=== PATIENT | female | born 1970 | race Caucasian/White ===

== ENCOUNTER 2017-01-28 23:40 | Emergency (ER) | payer OTHER ==
[2017-01-28 23:58] VITALS: BP 118/77; PULSE 97; RESP 16; O2SAT 99
[2017-01-29] MEDS ORDERED: Ketamine 10 mg/mL 20 mL Inj NASAL ONE (00:40)
--- NOTE | 2017-01-29 01:52 | ED.REPORT ---
HPI-Extremity Problem Upper Date of Service Jan 29, 2017 ED Provider: Neil Horton MD A 46 year old female with a history of cluster headaches, anxiety, and seizure disorder presents to the ED with a cat bite to her left hand onset three days ago. The patient was initially seen at Urgent Care where the wound was lanced and drained and the patient was placed on doxycycline. She was subsequently seen twice more at for wound drainage. Today she was placed on Bactrim in addition to her doxycycline. The patient was concerned this evening with new symptoms of hand numbness, warmth, and swelling, which have resolved here in the ED. Nursing Notes Stated Complaint: L HAND/MIDDLE FINGER INFECTION Chief Complaint: Skin Rash/Abscess Nursing Notes Reviewed: Yes Allergies: Coded Allergies: meperidine HCl (Verified Allergy, Severe, increases seizure activity, 01/29) promethazine HCl (Verified Allergy, Severe, convulsions, 01/29/17) Penicillins (Verified Allergy, Intermediate, rash all over body, 01/29/17) diphenhydramine (Verified Adverse Reaction, Severe, 01/29/17) hyperactivity General Time Seen by MD: 00:50 Chief Complaint Hand Injury left Hx Obtained From: Patient Arrived By: Walk-in Onset Occurred: 3 days ago Symptom Duration: Since onset Caused by: Animal bite Location: : Hand left Quality: Painful Severity: Current: Moderate Severity: Maximum: Moderate Associated with: Reports: Swelling, Denies: Fever Pertinent Negative: Relieved by nothing Recent Healthcare: Recent doctor visit Past Medical History Past Medical History Per patient: cluster headaches, seizure disorder Anxiety Past Surgical History None Smoking History Never Smoker Social History Alcohol Use: Denies alcohol use Drug Use: Denies drug use Ambulatory Status Independent Review of Systems Review of Systems Note: + Cat bite left hand, left hand warmth Constitutional: Denies: Fever Musculoskeletal: Reports: Extremity pain (Left hand), Extremity swelling (Left hand) Neurologic: Reports: Numbness (Left hand) Complete sys rev & neg: except as marked. Physical Exam Initial Vital Signs Vital Signs (First) Date Time Temp Pulse Resp B/P Pulse Ox O2 Delivery O2 Flow Rate FiO2 01/28/17 23:58 37.1 97 16 118/77 99 Room Air Initial VS: Reviewed Head / Eyes: Atraumatic, Normocephalic ENT: Conjunctiva normal, No scleral icterus Neck: Supple, Full range of motion Respiratory: No respiratory distress Skin: Warm, Dry Neurologic: Alert, Oriented, Nonfocal Psychiatric: Mood/affect normal, Behavior normal, Normal thought content General/Constitutional: Awake, Alert Behavior: Positive: Anxious Wrist / Hand: Neurologic intact, Vascular intact Cellulitis tip of middle left finger Open draining clean-looking area of previous debridement Dried eschar No proximal streaking Re-Eval/Medical Decision Med Decision/Clinical Course 36-year-old sustained a cat bite and required debridement. She is concerned because of some throbbing and residual numbness after an injection in the finger for her debridement. All vessels resolved. Her wound looks clean and healing. Continue current antibiotics. Follow up with PCP. Source of Hx: Old records Re-Evaluation/Progress : Time of Eval: 01:00 Patient Status: Condition improved Re-Evaluation/Progress Note: Discussed with patient diagnosis and plan for discharge. Follow-up and return to the ER instructions given. Patient agrees with plan for care and all questions were addressed. Counseled Regarding: Diagnosis, Need for follow-up, When/why to return to ED Discharge & Departure Impression: Primary Impression: Cellulitis Site of cellulitis: extremity Site of cellulitis of extremity: finger Laterality: left Qualified Code: L03.012 - Cellulitis of left finger Additional Impressions: Abscess Bite from cat Disposition: Home Discharge Condition All VS Reviewed: Yes Condition: Improved Patient Instructions: Cellulitis (ED) Additional Instructions: Continue to wash and redress with bacitracin ointment 3-4 times daily. Continue current antibiotics, Bactrim DS, and doxycycline. Elevate to reduce swelling and throbbing. Follow-up with your doctor in the office. Referrals: [facility] Scribe Attestation Portions of this note were transcribed by Mattie Waite. I, Dr. Horton, personally performed the history, physical exam, and medical decision-making; I reviewed and confirmed the accuracy of the information in the transcribed note. Signed by: Tree Francisco, 01/29/2017, 03:30 copies to: [facility] Neil Horton MD Jan 29, 2017 01:52 MATTIE WAITE Jan 29, 2017 03:29
== END 2017-01-29 02:14 | disposition home or self-care (01) ==
LOC: SED 23:40
DX: L03.012 Cellulitis of left finger (principal); L02.512 Cutaneous abscess of left hand; S61.452A Open bite of left hand, initial encounter; W55.01XA Bitten by cat, initial encounter; Y92.9 Unspecified place or not applicable; Y93.89 Activity, other specified; Y99.8 Other external cause status; G40.909 Epilepsy, unspecified, not intractable, without status epilepticus; G44.009 Cluster headache syndrome, unspecified, not intractable; F41.9 Anxiety disorder, unspecified; Z88.0 Allergy status to penicillin; Z88.5 Allergy status to narcotic agent; Z88.8 Allergy status to other drugs, medicaments and biological substances
CPT/HCPCS: 10060; 99283; G0463